=== PATIENT | female | born 1995 | race African-American/Black ===

== ENCOUNTER 2020-10-02 05:39 | Emergency (ER) | payer OTHER ==
[~2020-10-02] VITALS: Ht 149.9 cm; Wt 59.0 kg
[2020-10-02] MEDS: ALBUTEROL (0.083%) 2.5MG/3ML NEB HHN SCH ×3 (07:08→07:26)
[2020-10-02 07:58] LABS: BASOPHILS % 0.4 % (0.0-2.0); EOSINOPHILS % 1.4 % (0.0-5.0); HEMATOCRIT. 33.8 % (36.0-48.0); HEMOGLOBIN. 10.8 g/dL (12.0-16.0); LYMPHOCYTES % 26.1 % (20.0-50.0); MEAN CORPUSCULAR HEMOGLOBIN 27.8 pg (28.0-32.0); MEAN CORPUSCULAR VOLUME 86.8 fL (81.0-99.0); MEAN PLATELET VOLUME 9.5 fl (7.4-10.4); MONOCYTES % 7.1 % (2.0-8.0); PLATELET 219 x1000/uL (130-400); RED CELL DISTRIBUTION WIDTH 13.9 % (11.6-14.6)
[2020-10-02] MEDS ORDERED: ACETAMINOPHEN 325MG TABLET PO ONE (08:00)
[2020-10-02 08:06] LABS: CHLORIDE 105 mEq/L (98-107)
[2020-10-02 08:07] VITALS: BP 122/78
== END 2020-10-02 08:08 | disposition home or self-care (01) ==
LOC: ER 05:39
DX: O26.899 Other specified pregnancy related conditions, unspecified trimester (principal); Z3A.00 Weeks of gestation of pregnancy not specified; J45.901 Unspecified asthma with (acute) exacerbation; O99.330 Smoking (tobacco) complicating pregnancy, unspecified trimester
CPT/HCPCS: 36415; 80053; 83735; 83880; 84484; 85025; 93005; 94640; 99284; Z7610